=== PATIENT | female | born 2000 | race Two or more races ===

== ENCOUNTER 2021-04-15 21:40 | Emergency (ER) | payer OTHER, SELFPAY ==
--- NOTE | ~2021-04-15 | XR_ITS ---
EXAMINATION: XR CHEST CLINICAL INFORMATION: Productive cough COMPARISON: None TECHNIQUE: 2 views of the chest were obtained. FINDINGS: No significant abnormality is noted involving the heart, lungs, mediastinum, bony thorax or soft tissues. XR/XR chest 2V IMPRESSION: Unremarkable examination.
[2021-04-15 21:55] VITALS: BP 106/64; PULSE 91; RESP 16; TEMP 37.1; O2SAT 96; BMI 25.4
[2021-04-15 22:23] LABS: COVID-19 Test Negative (Negative); IDNOW Serial# 9DD0AD1C
--- NOTE | 2021-04-16 00:59 | ED_ITS ---
HPI - General Adult General Chief complaint: Upper Respiratory Symptoms Stated complaint: diff breathing Time Seen by Provider: 04/16/21 00:59 Source: patient Mode of arrival: ambulatory History of Present Illness HPI narrative: 20-year-old female without significant past medical history presents with 3 days of productive cough with green sputum but denies any fevers, chills, recent travel, sore throat, cough, GI or symptoms. No recent history of long car rides or plane trips, hemoptysis, estrogen supplementation, personal history of cancer, recent surgery or bed bound state, calf pain or calf swelling. Related Data Allergies Allergy/AdvReac Type Severity Reaction Status Date / Time No Known Allergies Allergy Verified 04/15/21 21:55 Review of Systems Review of Systems: Pertinent positives and negatives as stated in HPI 10 point review of systems is otherwise negative. PMFSH Past Medical History Source: nursing notes reviewed Medical History Depression IBS (irritable bowel syndrome) Social History Social History Advance Directives: No Advance Directives Information Provided: No Physical Exam Vital Signs: Vital Signs: Last Vital Signs Temp 98.8 F 04/15/21 21:55 Pulse 91 04/15/21 21:55 Resp 16 04/15/21 21:55 BP 106/64 04/15/21 21:55 Pulse Ox 96 04/15/21 21:55 Body Mass Index 25.4 VITAL SIGNS: Reviewed. GENERAL: Well developed, well nourished, in no acute distress. HEAD: Normocephalic/atraumatic EYES: PERRLA, EOMI EARS: Ext canals without abnormality, TMs non-bulging and non-erythematous NOSE: Nares patent bilateral OROPHARYNX: no oral lesions noted, posterior pharynx clear and non-erythematous without noted tonsillar enlargement/erythema/exudates NECK: Supple, no adenopathy LUNGS: Normal breath sounds. No adventitious sounds or accessory muscle use. SpO2<96> CARDIOVASCULAR: Regular rate and rhythm without noted murmurs ABDOMEN: Soft, non-tender, non-distended with bowel sounds. SKIN: Inspection of the skin reveals no rashes NEUROLOGIC: Alert and oriented x 4. Strength and sensation to light touch were grossly intact x 4. Course Course Course Narrative: 20-year-old female with history and clinical presentation c onsistent with likely postnasal drip and cough consistent with allergy versus viral syndrome. Review of all investigations negative for acute findings and patient discharged home in stable condition. Medical Decision Making Lab Data Labs: Lab Results 04/15/21 Range/Units 22:03 COVID-19 ([facility]) Negative (Negative) COVID-19 Clin Com See Note Discharge Plan Discharge Clinical Impression: Upper respiratory infection, Viral infection Patient Disposition: Home, Self-Care Instructions: Allergies (ED), Loratadine (By mouth), Fluticasone (Into the nose) Additional Instructions: 1. Continue to increase fluid resuscitation with water. 2. Continue taking [id number] cough medication as needed to control your cough. 3. Recommend a trial of Claritin and Flonase for possible allergy component contributing to your symptoms. 4. Please follow-up with your primary care provider for re-evaluation. Return to the ER for acute worsening of symptoms. Referrals: Dorita Medrano PA [Primary Care Provider] - 2 days
== END 2021-04-16 01:39 | disposition home or self-care (01) ==
PROVIDERS: Emergency Provider Student in an Organized Health Care Education/Training Program; PCP Physician Assistant Medical
DX: J06.9 Acute upper respiratory infection, unspecified (principal); B34.9 Viral infection, unspecified; Z20.822 Contact with and (suspected) exposure to COVID-19
CPT/HCPCS: 36415; 71046; 87635; 99283

== ENCOUNTER 2023-03-15 20:11 | Emergency (ER) | payer OTHER, SELFPAY ==
--- NOTE | ~2023-03-15 | XR_ITS ---
EXAMINATION: XR ELBOW, RIGHT CLINICAL INFORMATION: Fall. Pain. COMPARISON: None available. TECHNIQUE: Three views of the right elbow. FINDINGS: The bones and soft tissues are normal. No fracture or joint effusion. Alignment is anatomic. Joint spaces are maintained. There is a bandage over the dorsum of the elbow. There is subcutaneous tissue in this region there is a 4 mm rounded radiopacity. Correlate for possible foreign body. XR/XR elbow RT 2V IMPRESSION: 1. No acute osseous abnormality. 2. There is a bandage over the dorsum of the elbow. There is a 4 mm rounded radiopacity. Correlate for possible foreign body.
[2023-03-15 21:05] VITALS: BP 115/68; PULSE 83; RESP 16; TEMP 36.8; O2SAT 98; BMI 26.0
[2023-03-16 00:22] VITALS: BP 108/68; PULSE 76; RESP 14; O2SAT 99
--- NOTE | 2023-03-16 01:50 | ED.FALL ---
HPI - Fall General Chief Complaint: Fall Stated Complaint: wound / fell Time Seen by Provider: 03/15/23 23:10 Source: patient Mode of arrival: ambulatory Limitations: no limitations History of Present Illness HPI Narrative: Patient is a 22 old female presents emergency department after mechanical fall. She states that prior to arrival at approximately 1900 tonight she was playing jump rope when she tripped and fell landing on to her bilateral knees and right elbow. Reports mild pain. States the reason she came to the emergency department was due to the amount of bleeding she had from her right elbow. She denies any head strike or loss of consciousness. Denies any use of anticoagulants or coagulation disorders. She is ambulatory with a steady gait, that she does have some discomfort to the right knee upon ambulation. Related Data Previous Rx's Medication Instructions Recorded cephalexin 500 mg capsule 500 mg PO QID 5 days #20 caps 03/16/23 Allergies Allergy/AdvReac Type Severity Reaction Status Date / Time No Known Allergies Allergy Verified 04/15/21 21:55 Review of Systems Review of Systems: Yes all other systems are reviewed and are negative [facility] Past Medical History Attestation statement: The following information was validated with the patient. Source: old records reviewed Medical History Depression IBS (irritable bowel syndrome) Social History Social History Advance Directives: No Advance Directives Information Provided: Yes Physical Exam Vital Signs: Vital Signs: Last Vital Signs Temp 98.2 F 03/15/23 21:05 Pulse 76 03/16/23 00:22 Resp 14 03/16/23 00:22 BP 108/68 03/16/23 00:22 Pulse Ox 99 03/16/23 00:22 O2 Del Method Room Air 03/15/23 21:05 BMI result Body Mass Index 26.0 Appearance: Alert.?Oriented to person, place and time. No acute distress.?Normal affect. Eyes: Pupils equal, round and reactive to light.? Head: Normocephalic atraumatic Neck: Normal inspection.? Neck supple no midline cervical spine tenderness, step-offs, deformities..?? CVS: Heart sounds normal. Normal heart rate and rhythm.? Pulses normal.?? Respiratory: No respiratory distress.? Lung sounds clear to auscultation bilaterally??? Skin: Skin warm and dry.? Normal skin color.? Normal skin turgor.?? Extremities: No lower extremity edema.? 2+ DP/PT pulse bilaterally. Abrasion to the right anterior knee, superficial, no active bleeding. Full AROM to left knee. No point tenderness. No obvious deformity. No laxity. Right elbow with abrasion, minimal amount of active bleeding, superficial, not amenable to suture repair Neuro: Moves all extremities spontaneously. Sensation intact bilaterally. No focal neuro deficits. Ambulates with normal steady gait. Medical Decision Making Medical Decision Making MDM Narrative: Patient is a 22 old female who presents emergency department for evaluation after mechanical fall. Pain to the right elbow and left knee with associated abrasions. Concern for potential fracture/dislocation given decreased AROM, 2+ radial pulse bilateral he, neurovascularly intact distally.. Obtained x-ray of right elbow which revealed no acute abnormalities, there was however a radiopaque foreign body identified, upon examination a pebble was removed from the wound, cleansed with NS, applied bacitracin and covered with bandage. Tetanus updated, cephalexin sent to patient's pharmacy. Left knee abrasion cleansed with normal saline, bacitracin and bandage. Weight-bearing, full AROM, 2+ DP/PT pulse bilaterally, not consistent with acute fracture dislocation. Advised outpatient follow-up with primary care provider as needed. Reviewed worrisome signs and symptoms that would warrant re-evaluation in the emergency department. All questions answered. Differential Diagnosis Differential Diagnoses: The differential diagnosis associated with the presentation includes (As noted above) Independent Interpretation I performed an independent interpretation of an: Plain X-Ray (I personally interpreted x-ray of the right elbow and agree with radiologist impression) Radiology Impression Discussion of test interpretation with radiology: I have reviewed the radiologist's reading. Radiologist Impression: XR/XR elbow RT 2V IMPRESSION: 1.? No acute osseous abnormality. 2.? There is a bandage over the dorsum of the elbow. There is a 4 mm rounded radiopacity. Correlate for possible foreign body. Prescription Management I considered prescription management with: Pain Medication and Antibiotic Discharge Plan Discharge Clinical Impression: Fall, Contusion of elbow, right, Contusion of knee, left Patient Disposition: Home, Self-Care Instructions: Contusion in Adults (ED) Additional Instructions: Your tetanus vaccine was updated today. Please wash the abrasions twice daily with warm water and mild non scented soap. Apply bacitracin and cover with a bandage. Please complete short course of oral antibiotics, if you are taking any oral control medications she will need to use an alternative form of contraception while taking antibiotics, to prevent . If you develop redness, swelling, pus-like drainage, fevers, chills, severe worsening pain you should return back to emergency department for evaluation. Follow-up with her primary care provider as needed. Prescriptions: New cephalexin 500 mg capsule 500 mg PO QID 5 Days Qty: 20 0RF
[2023-03-16] MEDS: Diphth,Pertus(ACell),Tet Adult 0.5 ML SYRINGE IM (02:32)
[2023-03-16] MEDS: Bacitracin Oint 0.9 GM PACKET 1 APPL TOPICAL (02:35)
[2023-03-16 02:40] VITALS: BP 102/69; PULSE 79; RESP 16
== END 2023-03-16 02:45 | disposition home or self-care (01) ==
PROVIDERS: Emergency Provider Emergency Medicine; PCP Physician Assistant Medical
DX: S80.02XA Contusion of left knee, initial encounter (principal); S50.01XA Contusion of right elbow, initial encounter; S80.212A Abrasion, left knee, initial encounter; S80.211A Abrasion, right knee, initial encounter; M25.521 Pain in right elbow; W01.0XXA Fall on same level from slipping, tripping and stumbling without subsequent striking against object, initial encounter; Y93.9 Activity, unspecified; Y92.9 Unspecified place or not applicable; Y99.9 Unspecified external cause status; Z23 Encounter for immunization
CPT/HCPCS: 73070; 90471; 90715; 99283; 99284

== ENCOUNTER → 2023-11-02 10:02 | Outpatient (BNVA) | payer OTHER, SELFPAY | PROVIDERS: PCP Physician Assistant Medical; Visit Provider Physician Assistant | DX: Z77.098 Contact with and (suspected) exposure to other hazardous, chiefly nonmedicinal, chemicals (principal) | CPT/HCPCS: 99203 ==

== ENCOUNTER → 2025-05-11 12:36 | Outpatient (BNVA) | payer OTHER, SELFPAY | PROVIDERS: PCP Physician Assistant Medical; Visit Provider Physician Assistant | DX: S16.1XXA Strain of muscle, fascia and tendon at neck level, initial encounter (principal); S29.012A Strain of muscle and tendon of back wall of thorax, initial encounter; Y04.2XXA Assault by strike against or bumped into by another person, initial encounter | CPT/HCPCS: 99203 ==

== ENCOUNTER → 2025-05-14 13:08 | Outpatient (BNVA) | payer OTHER, SELFPAY | PROVIDERS: PCP Physician Assistant Medical; Visit Provider Physician Assistant Medical | DX: S16.1XXA Strain of muscle, fascia and tendon at neck level, initial encounter (principal); S29.012A Strain of muscle and tendon of back wall of thorax, initial encounter; Y04.2XXA Assault by strike against or bumped into by another person, initial encounter; Z02.79 Encounter for issue of other medical certificate | CPT/HCPCS: 99213 ==